=== PATIENT | female | born 1945 | race Caucasian/White ===

== ENCOUNTER 2017-04-09 15:30 | Outpatient (CLI) | payer MEDICARE, OTHER ==
--- NOTE | 2017-04-11 09:26 | XRAY Report ---
RIGHT FOOT: 04/09/2017 COMPARISON: None. INDICATION: Localized swelling, mass, and lump unspecified. TECHNIQUE: Three views of the right foot. FINDINGS: Normal alignment. No evidence of fracture or other acute bone finding. Joints appear unr emarkable. No gross soft tissue swelling or radiopaque foreign body. IMPRESSION: NEGATIVE FOOT. JOB #: [id number] EXT JOB #:[id number]
== END 2017-04-09 15:31 | disposition home or self-care (01) ==
LOC: DI.S 15:30
PROVIDERS: ATTEND Physician Assistant
DX: R22.9 Localized swelling, mass and lump, unspecified (principal)

== ENCOUNTER 2017-08-15 15:28 | Outpatient (CLI) | payer MEDICARE, OTHER ==
--- NOTE | 2017-08-24 14:08 | Mammography Report ---
DIGITAL SCREENING MAMMOGRAM: 08/15/2017 CLINICAL INDICATION: A 72-year-old for screening. COMPARISON: 04/29, 03/28. TECHNIQUE: Routine CC and MLO projections were obtained of the breasts. FINDINGS: The breasts demonstrate scattered fibroglandular densities bilaterally. A few punctate, typically benign calcifications are present. No suspicious masses, clustered microcalcifications, or regions of architectural distortion are identified. IMPRESSION: BENIGN FINDINGS. RECOMMENDATION: Routine annual screening unless otherwise clinically indicated. BIRADS CATEGORY 2 - benign findings. STANDARD QUALIFYING STATEMENTS: 1. This examination was reviewed with the aid of Computer-Aided Detection (CAD). 2. A negative or benign imaging report should not delay biopsy if clinically suspicious findings are present. Consider surgical consultation if warranted. More than 5% of cancers are not identified by imaging. 3. Dense breasts may obscure an underlying neoplasm. TD: 08/24/2017 14:07
== END 2017-08-15 15:29 | disposition home or self-care (01) ==
LOC: DI.S 15:28
PROVIDERS: ATTEND Physician Assistant
DX: Z12.31 Encounter for screening mammogram for malignant neoplasm of breast (principal)
CPT/HCPCS: 77067